=== PATIENT | male | born 1955 | race Caucasian/White ===

== ENCOUNTER 2022-04-23 06:44 | Day surgery (SDC) | payer MEDICARE, BC ==
[~2022-04-23] VITALS: Ht 177.8 cm; Wt 102.3 kg
[2022-04-23] VITALS (10 sets, daily range): BP systolic 117–136; BP diastolic 77–98
[~2022-04-23 06:44] MED LIST: ALBU8.5H17 INH; ASPI-611 PO; CITA20TA28 PO; MOME13HF11 INH; MULT-1085 PO; OMEP40CA21 PO; VERA120T86 PO
[2022-04-23] MEDS ORDERED: ceFAZolin inj. 2,000 MG in normal saline soln 50 ML IV ONE (07:35)
[2022-04-23] MEDS ORDERED: ceFAZolin inj. 2,000 MG in dextrose 5%-water 100 ML IV ONE (07:38)
[2022-04-23 07:52] LABS: BASOPHILS # (AUTO) 0.1 X10'3 (0-0.2); EOSINOPHILS # (AUTO) 0.1 X10'3 (0-0.9); EOSINOPHILS % (AUTO) 1.2 % (0-6); HEMATOCRIT 50.1 % (42.0-52.0); HEMOGLOBIN 17.1 g/dl (14.0-17.9); LYMPHOCYTES # (AUTO) 1.6 X10'3 (1.1-4.8); LYMPHOCYTES % (AUTO) 21.6 % (21-51); MEAN CORPUSCULAR HEMOGLOBIN 31.3 PG (27.0-31.0); MEAN CORPUSCULAR HGB CONC 34.1 g/dL (33.0-36.5); MEAN CORPUSCULAR VOLUME 91.6 FL (78-98); MEAN PLATELET VOLUME 7.8 FL (7.4-10.4); MONOCYTES # (AUTO) 0.9 X10'3 (0-0.9); MONOCYTES % (AUTO) 12.9 % (2-12); NEUTROPHILS # (AUTO) 4.6 X10'3 (1.8-7.7); NEUTROPHILS % (AUTO) 63.3 % (42-75); PLATELET COUNT 247 X10'3 (140-440); RED BLOOD COUNT 5.47 X10'6 (4.70-6.10); RED CELL DISTRIBUTION WIDTH 13.5 % (11.5-14.5); WHITE BLOOD COUNT 7.3 X10'3 (4.5-11.0)
[2022-04-23] MEDS ORDERED: diphenhydrAMINE 50 mg/ml inj ONE (08:21)
[2022-04-23] MEDS ORDERED: FENTANYL CITRATE/PF 50 MCG/1 ML VIAL ONE ×3 (08:22→10:04)
[2022-04-23] MEDS ORDERED: LIDOcaine 1% 30ml preserv. free vial ONE (08:22)
[2022-04-23] MEDS ORDERED: midazolam 1 mg/ML 2ml injection ONE ×2 (08:22→10:04)
[2022-04-23] MEDS ORDERED: FINA5TAB11 PO (09:30)
[2022-04-23] MEDS ORDERED: BACL20TA PO (09:30)
[2022-04-23] MEDS ORDERED: MONT-40 PO (09:30)
[2022-04-23] MEDS ORDERED: DULO60CA63 PO (09:30)
[2022-04-23] MEDS ORDERED: UMEC1DIS INH (09:30)
[2022-04-23] MEDS ORDERED: morphine 4 MG/ML inj SYRINge IV PRN (10:40)
[2022-04-23] MEDS ORDERED: normal saline 1000ml 1,000 ML IV SCH (10:40)
[2022-04-23] MEDS ORDERED: HYDROcodone/acetaminophen 5mg/325mg tablet PO PRN (10:40)
== END 2022-04-23 13:05 | disposition home or self-care (01) ==
LOC: SSTAY O 06:44
PROVIDERS: ATTEND Radiology Vascular & Interventional Radiology
DX: M80.08XA Age-related osteoporosis with current pathological fracture, vertebra(e), initial encounter for fracture (principal); S32.050A Wedge compression fracture of fifth lumbar vertebra, initial encounter for closed fracture; X58.XXXA Exposure to other specified factors, initial encounter; Y93.89 Activity, other specified; Y92.89 Other specified places as the place of occurrence of the external cause; Y99.8 Other external cause status; Z87.891 Personal history of nicotine dependence; Z79.899 Other long term (current) drug therapy; Z91.013 Allergy to seafood; Z88.7 Allergy status to serum and vaccine
CPT/HCPCS: 22514; 36415; 85025; 85610; 99152; 99153; C1713; J1200; J2250; J3010; J3490; J7030; A4620